=== PATIENT | female | born 2000 | race Two or more races ===

== ENCOUNTER 2020-02-01 20:40 | Emergency (ER) | payer BC, OTHER ==
--- NOTE | 2020-02-01 22:07 | EDM.PDOC ---
ED HPI GENERAL MEDICAL PROBLEM - General Chief Complaint: General Stated Complaint: COVID SYMPTOMS Time Seen by Provider: 02/01/20 21:10 Source of Information: Reports: Patient History Limitations: Reports: No Limitations - History of Present Illness INITIAL COMMENTS - FREE TEXT/NARRATIVE: c/o COVID exposure pt and sister are here, local [email or web address] students who share a room in [email or web address] dorms, no other roommate a friend tested positive for COVID today and went home, pt ate lunch with this individual without a mask her sister has had flu-like sxs for one week pt has had congestion, ST and slight cough last week, better know, 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 [email or web address], ricardo has advised her to work, I have recommended she not work taking classes in-person - Related Data Allergies Allergy/AdvReac Type Severity Reaction Status Date / Time No Known Allergies Allergy Verified 02/01/20 21:11 Home Meds: Home Meds norgestimate-ethinyl estradioL [Tri-Sprintec Tablet] 1 tab PO ASDIRECTED 02/01/20 [History] ED ROS GENERAL - Review of Systems Review Of Systems: See Below Constitutional: Reports: No Symptoms HEENT: Reports: Rhinitis Respiratory: Reports: Cough Cardiovascular: Reports: No Symptoms Endocrine: Reports: No Symptoms GI/Abdominal: Reports: No Symptoms : Reports: No Symptoms Musculoskeletal: Reports: No Symptoms Skin: Reports: No Symptoms Neurological: Reports: No Symptoms Psychiatric: Reports: No Symptoms Hematologic/Lymphatic: Reports: No Symptoms Immunologic: Reports: No Symptoms ED EXAM, GENERAL - Physical Exam Exam: See Below Exam Limited By: No Limitations General Appearance: Alert, WD/WN, No Apparent Distress, Other (none ill) Eye Exam: Bilateral Eye: Conjunctival Injection, Normal Inspection Ears: Normal External Exam, Normal Canal, Hearing Grossly Normal, Normal TMs Nose: Other (slight mucus and crusting) Throat/Mouth: Normal Inspection, Normal Lips, Normal Teeth, Normal Gums, Normal Oropharynx, Normal Voice, No Airway Compromise Head: Atraumatic, Normocephalic Neck: Normal Inspection, Supple, Non-Tender, Full Range of Motion. No: Lymphadenopathy (R), Lymphadenopathy (L) Respiratory/Chest: No Respiratory Distress, Lungs Clear, Normal Breath Sounds, No Accessory Muscle Use, Chest Non-Tender Cardiovascular: Regular Rate, Rhythm, No Edema, No Gallop, No JVD, No Murmur, No Rub GI/Abdominal: Soft, Non-Tender Back Exam: Normal Inspection, Full Range of Motion, NT Extremities: Normal Inspection, Normal Range of Motion, Non-Tender, No Pedal Edema Neurological: Alert, Oriented, CN II-XII Intact, Normal Cognition, Normal Gait, No Motor/Sensory Deficits Psychiatric: Normal Affect, Normal Mood Skin Exam: Warm, Dry, Intact, Normal Color, No Rash Lymphatic: No Adenopathy Course - Vital Signs Last Recorded V/S: Last Vital Signs Temp 36.8 C 02/01/20 21:00 Pulse 79 02/01/20 21:00 Resp 18 02/01/20 21:00 BP 104/58 L 02/01/20 21:00 Pulse Ox 96 02/01/20 21:00 - Orders/Labs/Meds Orders: Active Orders 24 hr Category Date Time Status CORONAVIRUS COVID-19, [facility] Stat Lab 02/01/20 21:53 Ordered - Re-Assessments/Exams Free Text/Narrative Re-Assessment/Exam: 02/01/20 22:18 PE neg, vss, has had limited exposure (one meal) to friend who tested positive, however has been exposed to sister x 1 wk who has possible COVID sxs Departure - Departure Time of Disposition: 21:54 Disposition: Home, Self-Care 01 Condition: Good Clinical Impression: Exposure to COVID-19 virus - Discharge Information *PRESCRIPTION DRUG MONITORING PROGRAM REVIEWED*: Not Applicable *COPY OF PRESCRIPTION DRUG MONITORING REPORT IN PATIENT JING: Not Applicable Instructions: Airborne Precautions, Contact Precautions Referrals: PCP,Unknown [Primary Care Provider] - Forms: ED Department Discharge, ED Return to Work/School Form Additional Instructions: Self quarantine in your room for 14 days whether the COVID test is positive or negative. No work, no in-person classes, no eating in dining alves for 14 days. Use good handwashing. Maintain social distance of 6 feet from each other. Sepsis Event Note (ED) - Focused Exam Vital Signs: Vital Signs Temp Pulse Resp BP Pulse Ox 02/01/20 21:00 36.8 C 79 18 104/58 L 96 - My Orders Last 24 Hours: My Active Orders 02/01/20 21:53 CORONAVIRUS COVID-19, [facility] Stat - Assessment/Plan Last 24 Hours: My Active Orders 02/01/20 21:53 CORONAVIRUS COVID-19, [facility] Stat
== END 2020-02-01 22:15 | disposition home or self-care (01) ==
LOC: FB.ED 20:40
DX: R05 Cough (principal); Z20.828 Contact with and (suspected) exposure to other viral communicable diseases
CPT/HCPCS: 99283; U0002